=== PATIENT | male | born 1980 | race Caucasian/White ===

== ENCOUNTER 2020-09-30 00:21 | Observation (INO) | payer OTHER, SELFPAY ==
[2020-09-30] VITALS (16 sets, daily range): BP systolic 118–157; BP diastolic 50–103; PULSE 52–111; RESP 10–20; TEMP 36.1–37.1; O2SAT 94–99; BMI 32.6
--- NOTE | ~2020-09-30 | CT_ITS ---
EXAMINATION: CT abdomen pelvis w con DATE: 09/30/2020 01:18 INDICATION: Right lower quadrant abdominal pain. TECHNIQUE: Computed tomography (CT) of the abdomen and pelvis was performed with 100 mL Omnipaque-350 intravenous contrast. Automated exposure control and iterative reconstruction technique were employe d. The dose-length product was 1008.47 mGy-cm. COMPARISON: None FINDINGS: Minimal dependent atelectasis in the bilateral lower lobes. Heart size is normal. No pericardial or p leural effusion. Liver, gallbladder, pancreas, bilateral adrenal glands and kidneys are normal. Splen ic calcifications consistent with old granulomatous disease. There are couple obstructing 3-4 mm appe ndicoliths at the base of the appendix which is fluid-filled and dilated to 12 mm in maximal diameter with wall thickening and mild periappendiceal inflammatory stranding consistent with acute appendici tis. The colon and small bowel appear normal with no obstruction or abnormal wall thickening. Bladder is normal. No free intraperitoneal gas or fluid. No pathologically enlarged abdominal or pelvic lymp hadenopathy. Chronic appearing T10 compression fracture with one third anterior vertebral body heigh t loss. No acute fractures identified. IMPRESSION: 1. Radiographically uncomplicated acute appendicitis. Reviewed, dictated and finalized at location A. S COACH
--- NOTE | 2020-09-30 00:29 | ED.ABDPAIN ---
HPI - Abdominal Pain General Chief Complaint: Abdominal Pain Stated Complaint: right lower abdominal pain Time Seen by Provider: 09/30/20 00:29 Source: patient and family Mode of arrival: ambulatory Limitations: no limitations History of Present Illness HPI narrative: Patient is a 39-year-old male who presents for evaluation of right-sided abdominal pain. Patient reports abdominal pain began after dinner this evening, described as sharp, severe in nature. No associated testicular pain. No fever, chills,but does report nausea without vomiting. Symptoms are worse with movement. He denies any urinary symptoms. He reports constipation. He states he often has these symptoms after eating dutton peppers and is worried he did eat some dutton peppers with dinner. Last oral intake 7 pm this evening. Related Data Allergies Allergy/AdvReac Type Severity Reaction Status Date / Time dutton peppers Allergy Abdominal Uncoded 09/30/20 00:23 Pain Review of Systems Review of Systems: Narrative: CONSTITUTIONAL: Denies fever, chills, or sweats. CARDIOVASCULAR: Denies chest pain, palpitations, or edema. RESPIRATORY: Denies cough or dyspnea. GASTROINTESTINAL: Reports right-sided abdominal pain GENITOURINARY: Denies dysuria or hematuria. SKIN: Denies rash or itching. MUSCULOSKELETAL: Denies back pain, joint pain, or myalgia. NEUROLOGIC: Denies headache, numbness, or weakness. [facility] Past Medical History Medical History Nephrolithiasis Social History Social History (Updated 09/30/20 @ 00:54 by Annika Zavaleta MD) Smoking status: Never smoker Alcohol intake: current Alcohol use details: social, rare Substance use: never Gender identity (if verbalized by the patient): Male Exam Narrative: Exam Narrative: GENERAL: Awake, alert, conversant, uncomfortable appearing HEAD: Normocephalic, atraumatic. EYES: PERRLA and EOMI. ENT: Nares clear, no rhinorrhea or epistaxis. Mucous membranes moist. NECK: Supple. CHEST: No respiratory distress, breathing even and non labored HEART: Tachycardic rate, sinus rhythm ABDOMEN:Non distended,RLQ tenderness, mild guarding, + rebound EXTREMITIES: Normal range of motion. No edema. SKIN: Warm, dry, no rash. NEURO:No focal deficits. Alert and oriented x3 Course Vital Signs Vital signs: Vital Signs Temperature 37.1 C 09/30/20 00:29 Pulse Rate 111 H 09/30/20 00:29 Respiratory Rate 20 09/30/20 00:29 Blood Pressure 152/103 H 09/30/20 00:29 Pulse Oximetry 98 09/30/20 00:29 Temperature 37.1 C 09/30/20 00:29 Pulse Rate 107 H 09/30/20 01:00 Respiratory Rate 18 09/30/20 01:00 Blood Pressure 149/91 H 09/30/20 01:00 Pulse Oximetry 95 09/30/20 01:00 MDM - Abdominal Pain MDM Narrative Medical decision making narrative: Patient presenting with right lower quadrant abdominal pain, guarding, peritoneal on exam. Patient is mildly tachycardic, afebrile, no hypotension. Pt with leukocytosis. Mild transaminitis. No hyperbilirubinemia. No UTI. Unsure etiology of the elevated transaminases at this point. Pt without any RUQ tenderness. No evidence of mass or obstruction on imaging. No history of hepatatitis. Perhaps secondary to appendicitis infection. Imaging confirms acute appendicitis without abscess or perforation. Patient will be given IV Zosyn, kept n.p.o. on maintenance fluids. Patient admitted to general surgeon Dr. Kennedy. Differential Diagnosis Differential diagnosis: Likely abdominal pain, acute appendicitis, calculus of kidney, diverticulitis and small bowel obstruction Lab Data Attestation: I reviewed the patient's lab results. Result diagrams: 09/30/20 00:36 09/30/20 00:36 Labs: Lab Results 09/30/20 09/30/20 09/30/20 Range/Units 00:36 00:36 00:50 WBC 15.0 H (4.5-10.0) K/mm3 RBC 5.20 (4.6-6.20) M/mm3 Hgb 15.8 (14.0-18.0) g/dL Hct 45.8 (42.0-52.0) %
[2020-09-30 00:43] LABS: Basophils Absolute Auto 0.1 K/mm3 (0.0-0.1); Basophils Percent Auto 0.5 % (0.2-1.2); Eosinophils Absolute Auto 0.2 K/mm3 (0-0.3); Eosinophils Percent Auto 1.3 % (0-4.4); Hematocrit 45.8 % (42.0-52.0); Hemoglobin 15.8 g/dL (14.0-18.0); Immature Granulocyte Absolute 0.04 K/mm3 (0.00-0.031); Immature Granulocyte Percent A 0.3 % (0-0.5); Lymphocytes Absolute Auto 2.58 K/mm3 (0.9-3.2); Lymphocytes Percent Auto 17.3 % (18.3-44.2); Mean Corpuscular HGB Conc 34.5 g/dl (32-36); Mean Corpuscular Hemoglobin 30.4 pg (26-34); Mean Corpuscular Volume 88.1 fl (80-100); Mean Platelet Volume 9.4 fl (7.4-10.4); Monocytes Absolute Auto 0.9 K/mm3 (0.1-0.6); Monocytes Percent Auto 5.9 % (2.6-8.5); Neutrophils Absolute Auto 11.2 K/mm3 (1.3-6.7); Neutrophils Percent Auto 74.7 % (45.5-73.1); Platelet Count Result 214 k/mm3 (150-375); Red Cell Distribution Width 12.7 % (11.5-14.5)
[2020-09-30] MEDS: SODIUM CHLORIDE 0.9% IV 1,000 ML 999 ML IV CONT (00:51)
[2020-09-30] MEDS: ONDANSETRON INJ 4 MG/2 ML VIAL IV PUSH ×3 (00:51→13:23)
[2020-09-30] MEDS: MORPHINE SULFATE (*CRX) 4 MG/ML INJ IV PUSH ×5 (00:52→15:11)
[2020-09-30 00:56] LABS: Alanine Aminotransferase 156 U/L (4-50); Albumin Level 4.6 g/dL (3.5-5.1); Alkaline Phosphatase 68 U/L (38-126); Anion Gap 13 mmol/L (8-16); Aspartate Amino Transferase 90 U/L (17-59); Bilirubin,Total 0.6 mg/dL (0.2-1.3); Blood Urea Nitrogen 19 mg/dL (9-20); Calcium 9.9 mg/dL (8.4-10.2); Carbon Dioxide 23 mmol/L (22-30); Chloride 103 mmol/L (98-107); Estimated CRCL calculation 122 ml/min; Estimated Glomerular Filt Rate > 60; Glucose 110 mg/dL (75-110); Lipase 181 U/L (23-300); Sodium 139 mmol/L (137-145)
[2020-09-30 01:06] LABS: Add Urine Microscopic? YES; Appearance Urine Clear (Clear); Bacteria Urine Trace /hpf; Bilirubin Urine Negative (Negative); Blood Urine 2+ (Negative); Color Urine Yellow (Yellow); Glucose Urine UA Negative (Negative); Ketones Urine Negative (Negative); Leukocyte Esterase Ur Negative LEU/UL (Negative); Mucus Urine Rare /lpf; Nitrate Urine Negative (Negative); Protein Urine Negative (Negative); Specific Grav Ur 1.021 (1.001-1.035); Squamous Epithelial Cell Urine Rare /hpf (Few); Urobilinogen Urine Negative mg/dL (<2.0); WBC Urine 0-3 /hpf
[2020-09-30] MEDS: HYDROmorphone HCL INJ (*CRX) 1 MG/ML SYR 0.5 MG IV PUSH (01:51)
--- NOTE | 2020-09-30 03:04 | ADMGEN ---
This patient, Parvez Allen, was admitted to Medical Room [facility] at 0255. Patient/family oriented to hospital policies and general routines including ID bracelet, bed and alarms, visiting hours, pain management, procedures, bathroom and other care routines, personal items, smoking policy, room service/diet, and visiting hours. Information on how to activate the Rapid Response Team has been discussed. Patient/Family are encouraged to report perceived risks to care and to ask questions if they do not understand what they are told or what they should do.
[2020-09-30] MEDS: SODIUM CHLORIDE 0.9% IV 1,000 ML 125 ML IV CONT (03:13)
--- NOTE | 2020-09-30 06:55 | WPDANESEPP ---
Anes - Eval Pre Procedure Procedure: lap appendectomy Date/Time: 09/30/20 06:55 Surgeon: so Pre Op Diagnosis: Acute appendicitis Patient Data Age: 39 Gender: M Height: 1.8 m Weight: 106.2 kg Last Vital Signs Temp 36.3 C L 09/30/20 06:00 Pulse 83 09/30/20 06:00 Resp 16 09/30/20 06:00 BP 129/72 09/30/20 06:00 Pulse Ox 96 09/30/20 06:00 Allergies Allergy/AdvReac Type Severity Reaction Status Date / Time dutton peppers Allergy Abdominal Uncoded 09/30/20 00:23 Pain Home Medications Medication Instructions Recorded Confirmed Type No Home Medications 09/30/20 09/30/20 History Laboratory Tests 09/30/20 09/30/20 09/30/20 00:36 00:36 00:50 WBC 15.0 K/mm3 H K/mm3 (4.5-10.0) RBC 5.20 M/mm3 M/mm3 (4.6-6.20) Hgb 15.8 g/dL g/dL (14.0-18.0) Hct 45.8 % % (42.0-52.0) MCV 88.1 fl fl (80-100) MCH 30.4 pg pg (26-34) MCHC 34.5 g/dl g/dl (32-36) RDW 12.7 % % (11.5-14.5) Plt Count 214 k/mm3 k/mm3 (150-375) MPV 9.4 fl fl (7.4-10.4) Immature Gran % (Auto) 0.3 % % (0-0.5) Neut % (Auto) 74.7 % H % (45.5-73.1) Lymph % (Auto) 17.3 % L % (18.3-44.2) [place] % (Auto) 5.9 % % (2.6-8.5) Eos % (Auto) 1.3 % % (0-4.4) Baso % (Auto) 0.5 % % (0.2-1.2) Lymph # (Auto) 2.58 K/mm3 K/mm3 (0.9-3.2) [place] # (Auto) 0.9 K/mm3 H K/mm3 (0.1-0.6) Eos # (Auto) 0.2 K/mm3 K/mm3 (0-0.3) Baso # (Auto) 0.1 K/mm3 K/mm3 (0.0-0.1) Abs Immat Gran (auto) 0.04 K/mm3 H K/mm3 (0.00-0.031) Absolute Neuts (auto) 11.2 K/mm3 H K/mm3 (1.3-6.7) Absolute Nucleated RBC 0.0 K/mm3 K/mm3 (0.0-0.012) Nucleated RBC % 0.0 % % (0.0-0.2) Sodium 139 mmol/L mmol/L (137-145) Potassium 4.0 mmol/L mmol/L (3.4-5.0) Chloride 103 mmol/L mmol/L (98-107) Carbon Dioxide 23 mmol/L mmol/L (22-30) Anion Gap 13 mmol/L mmol/L (8-16) BUN 19 mg/dL mg/dL (9-20) Creatinine 0.90 mg/dL mg/dL (0.7-1.3) Estim Creat Clear Calc 122 ml/min ml/min Estimated GFR > 60 (59 - ) Glucose 110 mg/dL mg/dL (75-110) Calcium 9.9 mg/dL mg/dL (8.4-10.2) Total Bilirubin 0.6 mg/dL mg/dL (0.2-1.3) AST 90 U/L H U/L (17-59) ALT 156 U/L H U/L (4-50) Alkaline Phosphatase 68 U/L U/L (38-126) Total Protein 8.0 g/dL g/dL (6.3-8.2) Albumin 4.6 g/dL g/dL (3.5-5.1) Lipase 181 U/L U/L (23-300) Urine Color Yellow (Yellow) Urine Appearance Clear (Clear) Urine pH 5.0 (5.0-9.0) Ur Specific [place] 1.021 (1.001-1.035) Urine Protein Negative mg/dL mg/dL (Negative) Urine Glucose (UA) Negative mg/dL mg/dL (Negative) Urine Ketones Negative mg/dL mg/dL (Negative) Ur Blood (Man) 2+ H (Negative) Urine Nitrate Negative (Negative) Urine Bilirubin Negative (Negative) Urine Urobilinogen Negative mg/dL mg/dL (<2.0) Leukocyte Esterase Rfl Negative GAMALIEL/UL GAMALIEL/UL (Negative) Urine RBC 3-5 /hpf H /hpf (0-2) Urine WBC 0-3 /hpf /hpf Ur Squamous Epith Cells Rare /hpf /hpf (Few) Urine Bacteria Trace /hpf /hpf Urine Mucus Rare /lpf /lpf Patient hx anesthesia problems: none Family hx anesthesia problems: none PMFSH Past Medical History Medical History Nephrolithiasis Family History Family History (Updated 09/30/20 @ 03:20 by Xena Henriquez RN) Mother Chronic obstructive pulmonary disease Diabetes mellitus Hypertension Father Diabetes mellitus Social History Social H
--- NOTE | 2020-09-30 07:42 | P.PNAN_ITS ---
Anes - Eval Final PreProcedure Day of Procedure 09/30/20 07:42 Patient weight: obese Heart: regular rate and rhythm Lungs: clear to auscultation and normal air movement Airway: Mallampati scale class II Neurological: alert and oriented Last oral intake: >/= 8 hours ASA classification: II Emergent: yes Anesthetic plan: proceed Anesthesia type and monitoring: general GIVS Informed Consent: The patient's anesthetic plan and its attendant risks and b enefits were discussed with the patient/family/POA. Questions were solicited and answers provided to the satisfaction of the patient/family/POA.
--- NOTE | 2020-09-30 09:42 | PM.IMHP ---
H&P: HPI History of Present Illness Date/Time: 09/30/20 09:42 Chief complaint: Acute appendicitis Narrative: Parvez Allen is a 39 year old male Who presented to the emergency department overnight with complaints of right lower quadrant abdominal pain. His pain started around 7:00 p.m. last night. It started as vague periumbilical pain that migrated to the right lower quadrant. He did have 1 episode of vomiting this morning. He denies any change in bowel habits. He has had kidney stones in the past in pain is somewhat similar to that, but has not had any issues quite like this before. He denies any fevers or chills. Review of Systems Review of Systems: All systems reviewed & are unremarkable except as noted in HPI and below Eyes: Eyes: Denies change in vision ENT: Denies hearing loss, Denies neck pain and Denies sore throat Cardiovascular: Cardiovascular: Denies chest pain and Denies dyspnea Respiratory: Respiratory: Denies cough, Denies dyspnea and Denies wheezing Gastrointestinal: Gastrointestinal: Reports as per HPI Genitourinary: Genitourinary: Denies hematuria and Denies dysuria Musculoskeletal: Musculoskeletal: Denies arthralgias, Denies joint swelling and Denies neck pain Allergic/Immunologic: Allergic/Immunologic: Denies wheezing PMFSH Past Medical History Medical History Nephrolithiasis Obstructive sleep apnea Surgical History Surgical History Hx of lithotripsy Family History Family History Mother Chronic obstructive pulmonary disease Diabetes mellitus Hypertension Father Diabetes mellitus Social History Social History Smoking status: Former smoker Additional smoking assessment comments: 6 mos to 1 year Alcohol intake: former Alcohol use details: social, rare Substance use: former Substance use type: does not use Gender identity (if verbalized by the patient): Male Spiritual care concerns: No Meds Home Medications and Allergies Home Medications Medication Instructions Recorded Confirmed Type No Home Medications 09/30/20 09/30/20 History Allergies Allergy/AdvReac Type Severity Reaction Status Date / Time dutton peppers Allergy Abdominal Uncoded 09/30/20 00:23 Pain Vital Signs Vital Signs - 24 hr 09/30/20 00:29 09/30/20 01:00 09/30/20 01:56 Temperature 37.1 C Pulse Rate 111 H 107 H 98 Respiratory Rate 20 18 18 Blood Pressure 152/103 H 149/91 H 157/87 H Pulse Oximetry 98 95 96 09/30/20 02:45 09/30/20 03:09 09/30/20 03:50 Temperature 36.7 C 36.3 C L Pulse Rate 87 93 95 Respiratory Rate 18 18 10 L Blood Pressure 145/80 H 150/90 H Pulse Oximetry 95 96 95 09/30/20 06:00 Temperature 36.3 C L Pulse Rate 83 Respiratory Rate 16 Blood Pressure 129/72 Pulse Oximetry 96 Exam Const: General: alert; No acute distress Orientation/consciousness: patient oriented x3 Limitations: no limitations HENMT: Head: normocephalic and atraumatic Ears: hearing grossly normal bilaterally General nose exam: Normal external nose present and Normal nares present Mouth: Yes Normal oral and palatal mucosa present and Yes moist mucous membranes Eyes: General: appearance normal, both eyes and all related structures Conjunctivae: conjunctivae normal Sclera: sclerae normal Pupils: Equal, round and reactive pupils present EOM: EOMs intact bilaterally Neck: Neck: normal visual inspection, full ROM, no lymphadenopathy, supple and no JVD Lymphatic: no lymphadenopathy noted Chest: Chest palpation & inspection: normal inspection of the chest Resp: Effort & Inspection: normal respiratory effort and able to speak in complete sentences Auscultation: clear to auscultation bilaterally Percussion: percussion normal Cardio: Ju
--- NOTE | 2020-09-30 09:46 | WPDHPUPDATE1 ---
History and Physical Update Update Date/Time: 09/30/20 09:46 History and Physical has been reviewed, including an updated exam of the patient. There are NO changes in the patient's condition. Risks, benefits, and alternatives have been discussed and questions answered. Patient agrees to proceed with procedure.
[2020-09-30] MEDS: BUPIVACAINE/EPINEPHRINE 0.25% 10 ML VIAL 30 ML INFILTRATE (10:55)
[2020-09-30] MEDS: LACTATED RINGERS 1,000 ML 30 ML IV CONT (11:26)
--- NOTE | 2020-09-30 11:29 | PM.PROC ---
Procedure Note - Detailed Date of procedure: 09/30/20 Pre-op diagnosis: Acute appendicitis Post-op diagnosis: same Procedure performed: Laparoscopic Appendectomy Description of procedure: Procedure as well as risks, benefits, and alternatives were explained to the patient. The patient agreed to proceed. Written consent was obtained and placed in chart prior to procedure. The patient was brought back to surgical suite. He was placed supine on operating table. Time-out was done to confirm the patient and procedure. The patient was then intubated by the Anesthesia Department. his abdomen was prepped and draped in sterile fashion using chlorhexidine prep. A 5 mm incision was made just to the left of the patient's umbilicus and a 5 mm Optiview trocar was advanced through the abdominal layers under direct visualization. Once inside the peritoneal cavity, carbon dioxide insufflation was used to create a pneumoperitoneum. The camera was inserted and the abdomen was inspected. No immediate abnormalities were identified. The patient was then placed in slight Trendelenburg position and rotated to the left. A 5 mm incision was made in the suprapubic region in midline and a 5 mm trocar was inserted under direct visualization. A 12 mm incision was made in the left lower quadrant and a 12 mm trocar was inserted under direct visualization. The right lower quadrant was carefully inspected. The cecum was identified and then this was traced back to the appendix. The appendix was identified and grasped at the mesoappendix and lifted anteriorly. Careful blunt dissection was carried out at the base of the appendix through the mesoappendix using a [place] grasper. An Endo-MITESH 45 mm blue load stapler was then advanced across the base of the appendix and clamped and fired. A white reload was then clamped across the mesoappendix and fired. This freed up our appendix completely. It was then placed in an EndoCatch bag and removed through the left lower quadrant port. The staple lines were then inspected. Hemostasis appeared adequate and the staple lines appeared secure. The area was then irrigated with sterile saline. The pelvis was then carefully inspected and irrigated with sterile saline as well and the remainder of the abdomen was carefully inspected. The patient was then flattened out in bed. One final inspection was made around the abdominal cavity and no other abnormalities were seen. The left lower quadrant port was removed and a Cirilo-Jessie cone was used to approximate the fascia with a 0 Vicryl simple interrupted suture. The remaining ports were then removed under direct visualization. The camera was removed and the pneumoperitoneum was released. 0.5% bupivacaine with epinephrine was infiltrated locally around each of the incisions. The skin of the incisions was then approximated using 4-0 Monocryl subcuticular suture and Exofin glue was applied on top. The patient was then awakened from anesthesia, extubated, and transferred to Recovery. Anesthesia: GETA and local (0.5% bupivicaine with epi) Surgeon: Dhruv Kennedy DO Estimated blood loss (mL): 5 Pathology: yes (Appendix) Complications: No immediate complications Condition: stable Disposition: floor Findings: this is a 39-year-old man who presented to the emergency department overnight with complaints of right lower quadrant abdominal pain. His pain started around 7:00 p.m. last night. He was noted to have a slightly elevated white blood count and CT showed evidence of acute appendicitis. Discussions were made with the patient about treatment options and decision was made to proceed with laparoscopic appendectomy, possible open. Laparoscopic appendectomy was performed. The appendix appeared acutely inflamed with wall thickening and dilation, but there was no evidence of perforation or abscess. The base of the appendix appeared healthy and viable. No other intra-abdominal abnormalities wer
--- NOTE | 2020-09-30 12:27 | PC.NURSE ---
pt. returned to room 250 at 12:25
--- NOTE | 2020-10-05 11:54 | PM.DS ---
DS: Admitting Diagnosis Admitting Diagnosis Admitting Diagnosis: acute appendicitis DS: Discharge Diagnosis Discharge Diagnosis (1) Acute appendicitis: Qualifiers: Acute appendicitis type: with localized peritonitis Appendicitis abscess presence: unspecified whether abscess present Appendicitis gangrene presence: unspecified whether gangrene present Appendicitis perforation presence: unspecified whether perforation present Qualified Code(s): K35.30 - Acute appendicitis with localized peritonitis, without perforation or gangrene Code(s): K35.80 - Unspecified acute appendicitis Status: Acute (2) Adult BMI 32.0-32.9 kg/sq m: Code(s): Z68.32 - Body mass index [BMI] 32.0-32.9, adult Status: Acute (3) Obstructive sleep apnea: Code(s): G47.33 - Obstructive sleep apnea (adult) (pediatric) Status: Acute DS: Summary Hospital Course Reason for hospitalization: acute appendicitis Hospital Course: this is a 40-year-old man who presented to the emergency department with complaints of right lower quadrant pain. Workup in the emergency department showed evidence of acute appendicitis, and he was admitted for further treatment. He was started on broad-spectrum IV antibiotics. That morning he underwent laparoscopic appendectomy. Surgery was uncomplicated and appendix was not perforated. He was returned to the surgical floor postoperatively and his diet and activity were advanced as tolerated. He was then discharged on 09/30/2020. Status at Discharge Functional status at discharge: independent ambulation Overall status at discharge: patient is progressing back to baseline Time Spent with Patient Time attestation: Total time spent providing and/or coordinating discharge services: Time spent: Less than 30 minutes Exam GI: Inspection: incision ( Intact with glue) GI Palp: Yes Soft to palpation DS: Data Data Completed and Pending Completed studies during hospitalization: Pending at discharge 09/30/20 11:08 Surgical [PTH] Routine Imaging Radiologist's impression: ITS Impressions Abdomen/Pelvis CT 09/30/20 10:34 IMPRESSION: 1. Radiographically uncomplicated acute appendicitis. Discharge Plan Discharge Attending physician on discharge: Dhruv Nye Consulting providers: Tila Meredith Paul Discharging Clinician: Dhruv Nye Patient Disposition: Home, Self-Care Activity: other - see discharge instructions Diet: other - see discharge instructions Wound Care Instructions: other - see discharge instructions Discharge Instructions: DISCHARGE INSTRUCTION SHEET FOR HERNIA, GALLBLADDER AND APPENDIX SURGERIES DR. NYE PATIENT TO TAKE HOME 1. May shower in 24 hours, no soaking in bath x 2weeks. 2. Call office for: Wound increasingly painful or bleeding Vomiting Fever of greater than 101 degrees 3. If no bowel movement for three days, take 1 oz. (30 ml) Milk of Magnesia or MiraLax 17g 1 to 2 times daily. 4. No heavy lifting > 10-15 pounds x weeks for hernia repairs and 2 weeks for laparoscopic cholecystectomy or appendectomy. 5. No driving for 3 days or while taking narcotic pain medications. 6. Ice to surgical site for 48 hours (30 min on, then 30 min off). 7. Up walking 10-30 minutes three times per day. 8. Resume previous home medications. 9. Follow-up 10-14 days in office for wound check or as previously scheduled. [phone]) 10. Oral pain medications prescription to be sent to pharmacy. Take Tylenol 500mg every 6 hours and Ibuprofen 600mg every 6 hours for the first 2 days, then as needed. 11. NUTRITION: Start out by drinking fluids and increase your diet as tolerated. If you experience nausea, try dry toast, crackers, and 7-UP. If nausea or vomiting persists, contact your surgeon?s office. 12. Gallbladders-Low Fat Diet f
== END 2020-09-30 17:58 | disposition home or self-care (01) ==
LOC: ANHED 01:33 → ANH2MED 02:36
PROVIDERS: Admitting Provider Surgery; Emergency Provider Emergency Medicine; Visit Provider Surgery
PROC: 0DTJ4ZZ Resection of Appendix, Percutaneous Endoscopic Approach (ICD-10-PCS; CPT 44970; principal; 2020-09-30)
DX: K35.30 Acute appendicitis with localized peritonitis, without perforation or gangrene (principal); E66.9 Obesity, unspecified; G47.33 Obstructive sleep apnea (adult) (pediatric); Z87.891 Personal history of nicotine dependence; Z87.442 Personal history of urinary calculi; Z68.32 Body mass index [BMI] 32.0-32.9, adult
CPT/HCPCS: 44970; 36415; 74177; 80053; 81001; 83690; 85025; 88304; 96361; 96365; 96366; 96375; 96376; 99285; G0378; J0131; J1100; J1170; J2270; J2405; J2543; J2704; J3010; J7030; J7120; Q9967